=== PATIENT | female | born 1970 | race Caucasian/White ===

== ENCOUNTER → 2019-03-25 | Outpatient (CLI) | payer OTHER ==
--- NOTE | 2019-03-25 15:21 | Diagnostic Imaging Report ---
INDICATION: Neck pain radiating to the right hand. TIME OF EXAMINATION: 2:57 PM. FINDINGS: The curvature and alignment of the cervical spine are normal. There is degenerative disc disease at the C5-C6 level with disc space narrowing and marginal spurring. The remaining disc spaces are well-maintained. There is generalized facet arthropathy, particularly on the left. The odontoid is intact. The prevertebral tissues are normal. IMPRESSION: Cervical spondylosis. No acute bony abnormality is detected. Dictated by: Dictated on workstation # [id number]
--- NOTE | 2019-03-25 16:26 | Diagnostic Imaging Report ---
INDICATION: Right hand pain AP, oblique, and lateral views of the right hand are obtained. No fracture or acute bone abnormality is seen. Joint spaces are unremarkable. There is no destructive bony lesion. IMPRESSION: Negative right hand. Dictated by: Dictated on workstation # [id number]
== END ==
LOC: RAD FS 14:52
PROVIDERS: ATTEND Nurse Practitioner
DX: M47.812 Spondylosis without myelopathy or radiculopathy, cervical region (principal); M79.641 Pain in right hand
CPT/HCPCS: 72050; 73130

== ENCOUNTER → 2019-04-04 | Outpatient (CLI) | payer OTHER ==
[2019-04-04 15:57] LABS: BASOPHILS % (AUTO) 0 % (0-10); EOSINOPHILS % (AUTO) 0 % (0-10); HEMATOCRIT 41 % (35-52); HEMOGLOBIN 14.2 G/DL (11.5-16.0); LYMPHOCYTES # (AUTO) 2.7 X 10^3 (1.0-4.0); LYMPHOCYTES % (AUTO) 18 % (12-44); MEAN CORPUSCULAR HEMOGLOBIN 32 PG (25-34); MEAN CORPUSCULAR HGB CONC 35 G/DL (32-36); MEAN CORPUSCULAR VOLUME 92 FL (80-99); MEAN PLATELET VOLUME 10.3 FL (7.4-10.4); MONOCYTES % (AUTO) 7 % (0-12); NEUTROPHILS # (AUTO) 11.5 X 10^3 (1.8-7.8); NEUTROPHILS % (AUTO) 75 % (42-75); PLATELET COUNT 262 10^3/uL (130-400); WHITE BLOOD COUNT 15.2 10^3/uL (4.3-11.0)
[2019-04-04 16:15] LABS: ALANINE AMINOTRANSFERASE 28 U/L (0-55); ALBUMIN 4.1 GM/DL (3.2-4.5); ALKALINE PHOSPHATASE 70 U/L (40-136); BILIRUBIN,TOTAL 0.2 MG/DL (0.1-1.0); BUN/CREATININE RATIO 12; CALCIUM 9.3 MG/DL (8.5-10.1); CARBON DIOXIDE 22 MMOL/L (21-32); CHLORIDE 103 MMOL/L (98-107); CHOLESTEROL 197 MG/DL (< 200); CREATININE SERUM 0.84 MG/DL (0.60-1.30); GFR ESTIMATED > 60; GLUCOSE 106 MG/DL (70-105); POTASSIUM 4.1 MMOL/L (3.6-5.0); SODIUM 137 MMOL/L (135-145); TOTAL PROTEIN 7.3 GM/DL (6.4-8.2); TRIGLYCERIDES 140 MG/DL (<150)
[2019-04-04 16:49] LABS: LYMPHOCYTES % (MANUAL) 22 %; MONOCYTES % (MANUAL) 8 %; NEUTROPHILS % (MANUAL) 70 %; RBC MORPH NORMAL
== END ==
LOC: LAB 15:43
PROVIDERS: ATTEND Internal Medicine
DX: Z00.00 Encounter for general adult medical examination without abnormal findings (principal); E78.00 Pure hypercholesterolemia, unspecified; E78.1 Pure hyperglyceridemia
CPT/HCPCS: 36415; 80053; 82465; 83036; 84443; 84478; 85007; 85027

== ENCOUNTER → 2019-04-04 | Outpatient (CLI) | payer OTHER ==
--- NOTE | 2019-04-04 16:14 | Diagnostic Imaging Report ---
PROCEDURE: MR imaging cervical spine without contrast. TECHNIQUE: Multiplanar, multisequence MR imaging of the cervical spine was performed without contrast. INDICATION: Neck pain. Cervical lymphadenopathy. COMPARISON: Cervical spine radiographs 03/25/2019. FINDINGS: Normal alignment. Vertebral body heights are preserved. Mild degenerative endplate changes are greatest at C5-C6. Bone marrow signal is otherwise unremarkable. No abnormal signal in the cervical spinal cord. The visualized paravertebral soft tissues are unremarkable. At C5-C6, an annular disc bulge results in moderate spinal canal and bilateral neural foraminal narrowing. No other substantial spinal canal or neural foraminal narrowing in the cervical spine. IMPRESSION: Annular disc bulge at C5-C6 results in moderate spinal canal and bilateral neural foraminal narrowing. No other neural impingement. No abnormal signal in the cervical spinal cord. Dictated by: Dictated on workstation # [id number]
== END ==
LOC: RAD 14:53
PROVIDERS: ATTEND Nurse Practitioner
DX: M54.12 Radiculopathy, cervical region (principal); R20.0 Anesthesia of skin
CPT/HCPCS: 72141

== ENCOUNTER 2020-04-30 05:28 | Outpatient (RCR) | payer OTHER ==
[~2020-04-30] VITALS: Ht 172.7 cm; Wt 79.6 kg
[~2020-04-30 05:28] MED LIST: BUPR150T8 PO; PANT40TA52 PO; SUCR1TAB PO
== END 2020-04-30 09:52 | disposition home or self-care (01) ==
LOC: PREOP 05:28
PROVIDERS: ATTEND Surgery
DX: Z01.812 Encounter for preprocedural laboratory examination (principal); R13.10 Dysphagia, unspecified; Z20.822 Contact with and (suspected) exposure to COVID-19
CPT/HCPCS: 87635

== ENCOUNTER → 2020-05-08 | Outpatient (CLI) | payer OTHER | LOC: LABNPT 06:41 | PROVIDERS: ATTEND Surgery | DX: Z20.822 Contact with and (suspected) exposure to COVID-19 (principal) | CPT/HCPCS: 87635 ==

== ENCOUNTER 2020-05-11 10:51 | Day surgery (SDC) | payer OTHER ==
[~2020-05-11] VITALS: Ht 172.7 cm; Wt 79.6 kg
[2020-05-11] VITALS (7 sets, daily range): BP systolic 99–123; BP diastolic 65–88
[2020-05-11] MEDS ORDERED: LACTATED RINGERS 1,000 ML IV ONE (11:12)
[2020-05-11] MEDS ORDERED: LACTATED RINGERS 1,000 ML IV STA (11:12)
[2020-05-11] MEDS ORDERED: HURRICAINE EXT TUBE (BENZOCAINE) XX PRN (11:15)
--- NOTE | 2020-05-11 11:53 | Progress Note-Pre Operative ---
Pre-Operative Progress Note H&P Reviewed The H&P was reviewed, patient examined and no changes noted. Time Seen by Provider: 11:51 Date H&P Reviewed: May 11, 2020 Time H&P Reviewed: 11:52 Pre-Operative Diagnosis: Dysphagia JUAN ZHOU DO May 11, 2020 11:53
[2020-05-11] MEDS ORDERED: MIDAZOLAM 2 MG/2 ML (VERSED) VIAL ONE (11:58)
[2020-05-11] MEDS ORDERED: proPOfol 200 MG/20 ML (DIPRIVAN) VIAL IV ONE (11:58)
--- NOTE | 2020-05-11 12:34 | Progress Note-Post Operative ---
Post-Operative Progess Note Surgeon (s)/Smart Grid Engineer (s) Surgeon JUAN ZHOU DO Smart Grid Engineer: none Pre-Operative Diagnosis Dysphagia Post-Operative Diagnosis Gastritis Hiatal Hernia Procedure & Operative Findings Date of Procedure 05/11/20 Procedure Performed/Findings EGD with bx Anesthesia Type IV sedation by AGENCY CASHIER Estimated Blood Loss Estimated blood loss (mL): scant Specimens/Packing Specimens Removed antral bx body of stomach GE jxn bx JUAN ZHOU DO May 11, 2020 12:34
--- NOTE | 2020-05-11 12:35 | Endoscopy Discharge Instruct ---
Endo Procedure/Findings Findings 1.: Gastritis 2.: Hiatal Hernia Discharge Instructions - Activity: You might feel a little sleepy until tomorrow. This is due to the medicine you received to relax you. Until tomorrow, you should: NOT drive a car, operate machinery or power tools. NOT drink any alcoholic beverages. NOT make any important decisions or sign importortant papers. Do not return to work until tomorrow, unless otherwise instructed. Resume previous activities tomorrow. Diet: Start by taking liquids. If you tolerate liquids, advance to solid food. 1.: EGD in 1 year Notify Physician - If you experience excessive bleeding, unusual abdominal pain, fever, or chest pain, contact your doctor immediately. JUAN ZHOU DO May 11, 2020 12:35
--- NOTE | 2020-05-11 13:18 | Anesthesia-General Post-Op ---
MAC Patient Condition Mental Status/LOC: Same as Preop Cardiovascular: Satisfactory Nausea/Vomiting: Absent Respiratory: Satisfactory Pain: Controlled Complications: Absent Post Op Complications Complications None Follow Up Care/Instructions Patient Instructions None needed. Anesthesiology Discharge Order Discharge Order Patient is doing well, no complaints, stable vital signs, no apparent adverse anesthesia problems. No complications reported per nursing. ONIEL ESTRELLA CRNA May 11, 2020 13:17
--- NOTE | 2020-05-11 23:27 | OPERATIVE REPORT ---
DATE OF SERVICE: PREOPERATIVE DIAGNOSIS: Dysphagia. POSTOPERATIVE DIAGNOSES: Gastritis, hiatal hernia. PROCEDURE: EGD with biopsy. SURGEON: Fito Andrew DO PULLBOAT ENGINEER: None. ANESTHESIA: IV sedation by the OVERSEER KOSHER KITCHEN. SPECIMEN: Biopsy of the antrum, biopsy of body of stomach, biopsy of the GE junction. BLOOD LOSS: Scant. FLUIDS: Per anesthesia. POSTOPERATIVE CONDITION: Stable. INDICATION FOR PROCEDURE: The patient is a 49-year-old female who has been complaining of some dysphagia, needed a workup. FINDINGS: The patient had some mild gastritis. She had a hiatal hernia. PROCEDURE NOTE: After informed consent was obtained, the patient was brought to the endoscopy suite, placed in bed in left lateral decubitus position. She was administered IV sedation by the OVERSEER KOSHER KITCHEN who then monitored her vitals the entire time, heart rate, blood pressure and pulse ox and the scope was inserted, pushed down the mouth through the esophagus into the stomach. Once in the stomach, noted some gastritis, pushed into the duodenum, took a picture, duodenum looked okay. Pulled back, did a biopsy of the antrum. Retroflexed the scope, saw hiatal hernia and then did a biopsy of the body of stomach, then pulled the scope into the GE junction, did two biopsies of the GE junction, pushed the scope back into the stomach, suctioned all the air out and then pulled the scope up the esophagus and out the mouth. The patient tolerated the procedure. She was recovered in endoscopy suite. Job ID: [id number] DocumentID: [id number] Dictated Date: 05/11/2020 22:35:55 In House Counsel Date: 05/11/2020 23:26:17 Dictated By: FITO ANDREW DO
== END 2020-05-11 13:20 | disposition home or self-care (01) ==
LOC: ENDO 10:51
PROVIDERS: ATTEND Surgery
DX: K44.9 Diaphragmatic hernia without obstruction or gangrene (principal); K29.70 Gastritis, unspecified, without bleeding; K21.9 Gastro-esophageal reflux disease without esophagitis; Z79.899 Other long term (current) drug therapy; Z88.2 Allergy status to sulfonamides; F17.210 Nicotine dependence, cigarettes, uncomplicated; Z90.710 Acquired absence of both cervix and uterus